=== PATIENT | male | born 1990 | race Two or more races ===

== ENCOUNTER → 2023-08-08 | Outpatient (CLI) | payer OTHER ==
[2023-08-08 22:38] VITALS: PULSE 64; RESP 22
[2023-08-08 23:00] VITALS: PULSE 62; RESP 10
[2023-08-08 23:30] VITALS: PULSE 60; RESP 12
[2023-08-09] VITALS (11 sets, daily range): PULSE 56–68; RESP 8–20
== END | disposition home or self-care (01) ==
LOC: SLP 20:44
PROVIDERS: ATTEND Internal Medicine Critical Care Medicine
DX: G47.19 Other hypersomnia (principal)
CPT/HCPCS: 95811